=== PATIENT | female | born 1965 | race Caucasian/White ===

== ENCOUNTER 2021-07-28 19:51 | Inpatient (IN) | payer BC ==
[~2021-07-28] VITALS: Ht 165.1 cm; Wt 73.5 kg
[2021-07-28] MEDS ORDERED: IV NS 0.9% 1,000 ML BAG IV ONE ×2 (20:00→22:30)
[2021-07-28] MEDS ORDERED: ONDANSETRON HCL/PF 4 MG/2 ML VIAL IVP ONE (20:00)
--- NOTE | 2021-07-28 21:40 | NUR ---
BLOOD DRAWN FOR SEAN NAVAS PER . BLOOD SENT TO LAB
[2021-07-28 21:59] LABS: BASOPHILS # (AUTO) 0.1 K/uL (0.0-0.2); BASOPHILS % (AUTO) 0.3 % (0.0-2.0); HEMATOCRIT 28 % (33-45); HEMOGLOBIN 8.7 g/dL (11.5-14.8); LYMPHOCYTES # (AUTO) 1.7 K/uL (0.8-4.8); MEAN CORPUSCULAR HGB CONC 31 g/dl (31.0-36.0); MEAN CORPUSCULAR VOLUME 80 fL (82-100); MONOCYTES # (AUTO) 1.6 K/uL (0.1-1.30); MONOCYTES % (AUTO) 7.2 % (2.0-12.0); NEUTROPHILS # (AUTO) 18.5 K/uL (1.8-8.9); NEUTROPHILS % (AUTO) 84.5 % (43.0-81.0); PLATELET COUNT (AUTO) 462 K/uL (150-450); RED BLOOD CELL COUNT(AUTO) 3.51 MIL/uL (4.0-5.2); WHITE BLOOD COUNT (AUTO) 21.9 K/uL (4.3-11.0)
--- NOTE | 2021-07-28 22:10 | NUR ---
MAIRA DONE AND SENT TO LAB
[2021-07-28] MEDS ORDERED: ONDANSETRON HCL/PF 4 MG/2 ML VIAL ONE (22:19)
[2021-07-28 22:29] LABS: CALCIUM, SERUM 8.9 mg/dL (8.5-10.1); CREATININE 1.4 mg/dL (0.6-1.3); POTASSIUM 4.2 mmol/L (3.5-5.1)
[2021-07-28] MEDS ORDERED: MAG HYDROX/AL HYDROX/SIMETH 30 ML UDC PO PRN (22:30)
[2021-07-28] MEDS ORDERED: VANCOMYCIN 1 GM in IV D5W 250 ML IV ONE (22:30)
[2021-07-28] MEDS ORDERED: CEFEPIME 1 GM in IV D5W 50 ML IV ONE (22:30)
[2021-07-28 22:35] LABS: BILIRUBIN,DIRECT 0.1 mg/dL (0.0-0.2); BILIRUBIN,TOTAL 0.2 mg/dL (0.2-1.0); TOTAL PROTEIN, SERUM 6.6 g/dL (6.4-8.2)
[2021-07-28 22:43] LABS: ALBUMIN 1.4 g/dL (3.4-5.0)
[2021-07-28] MEDS ORDERED: IOHEXOL-350 100 ML VIAL IV ONE (22:46)
[2021-07-28] MEDS ORDERED: IV NS 0.9% 250 ML IV ONE (22:46)
--- NOTE | 2021-07-28 22:53 | NUR ---
PATIENT TAKEN TO CT
[2021-07-29] MEDS ORDERED: CEFEPIME 1 GM VIAL ONE (00:29)
[2021-07-29] MEDS ORDERED: VANCOMYCIN 1 GM VIAL ONE (00:30)
--- NOTE | 2021-07-29 00:46 | NUR ---
REPORT GIVEN TO SHAKEEL FRANCE
--- NOTE | 2021-07-29 01:00 | NUR ---
CLASS A LINEMAN OPENING NOTES PT ARRIVED TO UNIT VIA GURNEY PT ABLE TO WALK TO BED WITHOUT ASSISTANCE GAIT STEADY. A/O X4 NO PAIN OR DISCOMFORT NOTED AT THIS TIME ON ROOM AIR TOLERATING WELL. ORIENTED TO ROOM AND UNIT PT NOTED WITH RIGHT CHEST WALL PORT A CATH PT ON CHEMO THERAPY SHE IS A PT AT [facility] FOR INTRA ABDOMINAL SAR[facility] PT HAS A HISTORY OF MULTIPLE PARACENTESIS LAST PARACENTESIS WAS YESTERDAY 07/28/21 5L OUTPUT. PT HAS NO N/V AT THIS TIME. PT HAS IV ACCESS ON THE RIGHT HAND 20G RUNNING NS @75 ML/HR. ALBUMIN REPLACED 25G IV. PT HAS ABDOMINAL DISTENTION ABDOMEN IS NOT TENDER BANDAGE ON THE RIGHT SIDE FROM PARACENTESIS. SKIN IS WARM AND DRY NO DISCOLORATION NOTED. WILL CONTINUE OT MONITOR. Addendum: 07/29/21 at 0244 by EDILMA SOTO RN PRXochtil MORALES GIVEN PER PTS REQUEST TOLERATED WELL.
--- NOTE | 2021-07-29 01:00 | NUR ---
PATIENT TRANSFERRED UNDER ACLS
[2021-07-29] MEDS ORDERED: ALBUMIN 25% 100 ML IV ONE (01:09)
[2021-07-29] MEDS: ZOLPIDEM TARTRATE 5 MG TABLET PO PRN ×2 (01:31→21:26)
[2021-07-29 01:55] VITALS: BP 130/85
[2021-07-29] MEDS: ALBUMIN 25% 25 GM in PREMIX 1 EA IV SCH ×2 (02:43→11:18)
--- NOTE | 2021-07-29 03:25 | NUR ---
RN NOTES ATTEMPTED TO PUT IN MILD ACHS INSULIN ORDERS HOWEVER SYSTEM FOUND A SENSITIVITY TO INSULIN DUE TO PTS ALLERGY TO KIWIS INFORMED NICKEL PLATER DOCTOR REGARDING THIS SENSITIVITY AWAITING TO HEAR FROM DOCTOR IF ITS OKAY TO OVERRIDE THIS SENSITIVITY. AT THIS TIME PT REFUSED BS CHECK AT THIS TIME RISK EXPLAINED X 3 PT STATED " JUST CHECK IT IN THE MORNING ITS LATE NOW I WANT TO SLEEP" WILL CONTINUE TO MONITOR.
[2021-07-29 04:00] VITALS: BP 130/69
[2021-07-29] MEDS: BLOOD SUGAR DIAGNOSTIC 1 EACH STRIP IN SCH ×4 (06:40→21:19)
--- NOTE | 2021-07-29 06:56 | NUR ---
RN NOTES A/O X4 NO PAIN OR DISCOMFORT NOTED AT THIS TIME ON ROOM AIR TOLERATING WELL. ORIENTED. PT NOTED WITH RIGHT CHEST WALL PORT A CATH . PT HAS NO N/V AT THIS TIME. PT HAS IV ACCESS ON THE RIGHT HAND 20G RUNNING NS @75 ML/HR. ALBUMIN REPLACED 25G IV. PT HAS ABDOMINAL DISTENTION ABDOMEN IS NOT TENDER BANDAGE ON THE RIGHT SIDE FROM PARACENTESIS. SKIN IS WARM AND DRY NO DISCOLORATION NOTED. WILL ENDORSE CARE TO DAY SHIFT NURSE.
[2021-07-29 07:20] LABS: BASOPHILS # (AUTO) 0.1 K/uL (0.0-0.2); BASOPHILS % (AUTO) 0.3 % (0.0-2.0); EOSINOPHILS % (AUTO) 0.1 % (0.0-6.0); HEMATOCRIT 24 % (33-45); HEMOGLOBIN 7.6 g/dL (11.5-14.8); LYMPHOCYTES # (AUTO) 1.8 K/uL (0.8-4.8); LYMPHOCYTES % (AUTO) 9.5 % (20.0-44.0); MEAN CORPUSCULAR HGB CONC 32 g/dl (31.0-36.0); MEAN CORPUSCULAR VOLUME 80 fL (82-100); MONOCYTES # (AUTO) 1.6 K/uL (0.1-1.30); MONOCYTES % (AUTO) 8.2 % (2.0-12.0); NEUTROPHILS # (AUTO) 15.6 K/uL (1.8-8.9); NEUTROPHILS % (AUTO) 81.9 % (43.0-81.0); PLATELET COUNT (AUTO) 382 K/uL (150-450); RED BLOOD CELL COUNT(AUTO) 2.98 MIL/uL (4.0-5.2)
[2021-07-29 07:35] LABS: CALCIUM, SERUM 8.3 mg/dL (8.5-10.1); CREATININE 1.3 mg/dL (0.6-1.3); MAGNESIUM 2.1 mg/dL (1.8-2.4); PHOSPHORUS 4.5 mg/dL (2.5-4.9); POTASSIUM 3.8 mmol/L (3.5-5.1)
[2021-07-29 08:00] VITALS: BP 136/75
--- NOTE | 2021-07-29 08:33 | NUR ---
MS RN OPENING NOTES: RECEIVED PATIENT IN BED, AWAKE, A/O X4. PATIENT ON ROOM AIR; BREATHING EVEN AND UNLABORED, NO SOB NOTED. NO COMPLAINS OF PAIN. R HAND IV ACCESS G # 20 PRESENT AND INTACT; SL. SAFETY PRECAUTIONS IN PLACE; BED IN LOW POSITION AND LOCKED, RAILS UP X2, CALL LIGHT WITHIN REACH. WILL CONTINUE TO MONITOR PATIENT.
--- NOTE | 2021-07-29 09:35 | NUR ---
MILLED LUMBER GRADER NOTES DR HOFFMAN FROM RADIOLOGY CALLED WITH RESULTED CTA. PATIENT HAS BILATERAL PE. DR AYALA NOTIFIED AND MADE AWARE. ORDERS FOR STAT OCCULT BLOOD STOOL AND KEEPING PATIENT COMFORTABLE WITH O2 RECEIVED.
--- NOTE | 2021-07-29 10:33 | NUR ---
EHR TRAINER NOTES TRIED COLLECTING STOOL FOR OCCULT BLOOD STOOL TEST. COULD NOT COLLECT ANYTHING. PATIENT DID NOT EAT MUCH ANYTHING YESTERDAY AND TODAY AND NO STOOL PRESENT THAT COULD BE COLLECTED. WILL TRY AGAIN LATER.
--- NOTE | 2021-07-29 10:50 | NUR ---
FULL SERVICE SUPERVISOR NOTES PATIENT IS REFUSING NS @ 75 MLS/HR FOR NOW. SHE IS WORRIED ABOUT HER ASCITES AND DEVELOPING EDEMA.
[2021-07-29] MEDS ORDERED: ENOXAPARIN SODIUM 80 MG/0.8 ML DISP.SYRIN SQ ONE (12:00)
[2021-07-29] MEDS ORDERED: ENOXAPARIN SODIUM 80 MG/0.8 ML DISP.SYRIN SQ SCH (14:00)
--- NOTE | 2021-07-29 14:18 | NUR ---
OFFICE BOOKKEEPER NOTES REQUESTED MEDICAL RECORDS FROM [facility].
[2021-07-29 16:00] VITALS: BP 131/74
[2021-07-29] MEDS: ENSURE ENLIVE CHOC 237 ML CAN PO SCH (17:42)
--- NOTE | 2021-07-29 18:37 | NUR ---
MS RN CLOSING NOTES: PATIENT REMAINS IN BED, AWAKE, A/O X4. PATIENT ON ROOM AIR; BREATHING EVEN AND UNLABORED, NO SOB NOTED DURING THE DAY. NO COMPLAINS OF PAIN DURING SHIFT. R HAND IV ACCESS G # 20 PRESENT AND INTACT WITH NS RUNNING AT 75 MLS/HR. ALL NEEDS ATTENDED DURING THE DAY. SAFETY PRECAUTIONS IN PLACE; BED IN LOW POSITION AND LOCKED, RAILS UP X2, CALL LIGHT WITHIN REACH. WILL ENDORSE TO TRAFFIC MANAGER NURSE.
--- NOTE | 2021-07-29 19:15 | NUR ---
CYBER WORKFORCE DEVELOPER AND MANAGER NOTES ST-105 ON TELE MONITOR.ON BED A/O X4,BREATHING NON LABORED,O2 2L/NC IN USED ON AND OFF TO KEEP O2 SAT ABOVE 90%.KNOWN HX OF OVARIAN CA,ON CHEMOTHERAPY TWO WEEKS AGO,ABDOMEN SLIGHTLY DISTENDED BUT SOFT,S/P PARACENTESIS ON 07/27/21,5L OUT.IVF NS AT 75ML/HR RATE IN PROGRESS ON RIGHT HAND SALINE LOCK VIA IV PUMP.ASSIST WITH ADL'S FEELING WEAK.FALL PRECAUTION OBSERVED,BED ON LOWEST POSITION AND LOCKED.CALL LIGHT IN REACH,NEEDS ANTICIPATED.
[2021-07-29] MEDS ORDERED: RIVA10TA PO (19:46)
[2021-07-29] MEDS ORDERED: DIGO125T PO (19:46)
[2021-07-29] MEDS ORDERED: LOSA25TA27 PO (19:46)
[2021-07-29] MEDS ORDERED: FURO-145 PO (19:46)
[2021-07-29] MEDS ORDERED: METO50TA16 PO (19:46)
[2021-07-29 20:00] VITALS: BP 127/72
--- NOTE | 2021-07-29 21:04 | NUR ---
HOISTING ENGINE OPERATOR NOTES REPORTED BY SURGICAL DRESSING MAKER MARIA,PATIENT HAS EPISODE OF VTACH,RATE OF 220,CHECK ON PATIENT,SHE'S AWAKE,TRING TO GET A SLEEP.CHARGE NURSE MADE AWARE
--- NOTE | 2021-07-29 21:15 | NUR ---
HOMICIDE SQUAD CAPTAIN NOTES PATIENT DOOZING OFF AND ASKING FOR HER SLEEPING PILL.
[2021-07-29] MEDS: ACETAMINOPHEN 325 MG TABLET PO PRN (21:18)
--- NOTE | 2021-07-29 21:18 | NUR ---
FERRY CAPTAIN NOTES C/O MILD ABDOMINAL PAIN 2-3/1- ON PAIN SCALE,OFFERED TYLENOL BUT REFUSED.
--- NOTE | 2021-07-29 21:26 | NUR ---
PILLOW FILLER NOTES AMBIEN 5MG PO GIVEN PER PATIENT REQUEST,ST 106 ON TELE MONITOR THIS TIME.
--- NOTE | 2021-07-29 21:30 | NUR ---
AGRICULTURE MECHANIC NOTES [id number] BLOOD SUGAR CHECK 121,NO INSULIN COVERAGE.
[2021-07-29] MEDS: IV NS 0.9% 1,000 ML IV PRN (22:17)
[2021-07-29 23:49] LABS: OCCULT BLOOD STOOL NEGATIVE (NEGATIVE)
[2021-07-30] VITALS: BP 144/66
[2021-07-30] MEDS ORDERED: ENOXAPARIN SODIUM 80 MG/0.8 ML DISP.SYRIN SQ SCH
[2021-07-30 02:12] VITALS: BP 144/66
[2021-07-30 05:00] VITALS: BP 140/84
[2021-07-30] MEDS: ONDANSETRON HCL/PF 4 MG/2 ML VIAL IVP PRN (05:09)
--- NOTE | 2021-07-30 05:09 | NUR ---
JAIL KEEPER NOTES AWAKE,VOMITED COFFEE GROUND EMESIS,ZOFRAN 4MG IV GIVEN ORDERED.
[2021-07-30] MEDS: BLOOD SUGAR DIAGNOSTIC 1 EACH STRIP IN SCH ×4 (05:23→22:15)
[2021-07-30] MEDS: PANTOPRAZOLE 40 MG VIAL IV SCH ×2 (05:30→21:22)
--- NOTE | 2021-07-30 05:30 | NUR ---
PHOTOENGRAVING PROOFER APPRENTICE NOTES HOSPITALIST MADE AWARE OF VOMITUS COLOR,WITH NEW ORDER NOTED AND CARRIED OUT.,PROTONIX 40MG IV GIVEN ORDERED.
--- NOTE | 2021-07-30 06:28 | NUR ---
CUSTOMER SERVICE SUPERVISOR NOTES FAIRLY RESTED AT NIGHT,NAUSEA/VOMITING IMPROVED,IVF INFUSING WELL ON RIGHT HAND,PHU CATH CAN FLUSHED,BUT CANT ASPIRATE BLOOD,MORNING CARE RENDERED TOLERATED WELL.IN NO ACUTE DISTRESS,CALL LIGHT IN REACH,NEEDS ATTENDED.
[2021-07-30 07:31] LABS: BASOPHILS % (AUTO) 0.2 % (0.0-2.0); HEMATOCRIT 25 % (33-45); HEMOGLOBIN 7.8 g/dL (11.5-14.8); LYMPHOCYTES # (AUTO) 1.7 K/uL (0.8-4.8); LYMPHOCYTES % (AUTO) 7.9 % (20.0-44.0); MEAN CORPUSCULAR HGB CONC 32 g/dl (31.0-36.0); MEAN CORPUSCULAR VOLUME 80 fL (82-100); MONOCYTES # (AUTO) 1.8 K/uL (0.1-1.30); MONOCYTES % (AUTO) 8.7 % (2.0-12.0); NEUTROPHILS # (AUTO) 17.6 K/uL (1.8-8.9); NEUTROPHILS % (AUTO) 83.2 % (43.0-81.0); PLATELET COUNT (AUTO) 485 K/uL (150-450); RED BLOOD CELL COUNT(AUTO) 3.11 MIL/uL (4.0-5.2); WHITE BLOOD COUNT (AUTO) 21.2 K/uL (4.3-11.0)
[2021-07-30 07:41] LABS: CALCIUM, SERUM 8.5 mg/dL (8.5-10.1); CREATININE 1.1 mg/dL (0.6-1.3); POTASSIUM 3.7 mmol/L (3.5-5.1)
--- NOTE | 2021-07-30 07:50 | NUR ---
RN NOTES RECEIVED PATIENT IN BED, AWAKE, A/O X4. PATIENT ON ROOM AIR, BREATHING EVEN AND UNLABORED, NO SOB NOTED. NO COMPLAINS OF PAIN AT THIS THIS TIME. R HAND SL #20G PATENT AND INTACT. SAFETY PRECAUTIONS IN PLACE, BED IN LOW POSITION AND LOCKED, RAILS UP X2, CALL LIGHT AND TABLE WITHIN EASY REACH. WILL CONTINUE TO MONITOR PATIENT.
[2021-07-30 08:00] VITALS: BP 117/72
[2021-07-30 08:17] LABS: THYROID STIMULATING HORMONE 2.512 uIU/mL (0.358-3.74)
[2021-07-30] MEDS: ENSURE ENLIVE CHOC 237 ML CAN PO SCH ×2 (08:35→16:17)
[2021-07-30] MEDS: METOPROLOL TARTRATE 50 MG TABLET PO SCH ×2 (11:28→17:18)
[2021-07-30] MEDS: RIVAROXABAN 10 MG TABLET PO SCH ×3 (11:29→16:52)
[2021-07-30 12:56] LABS: BAND % (MANUAL) 4 % (0.0-5.0); LYMPHOCYTES % (MANUAL) 9 % (16-48); MONOCYTES % (MANUAL) 10 % (0-11.0); NEUTROPHILS % (MANUAL) 77 (42-76)
[2021-07-30] MEDS ORDERED: ATOR10TA PO (16:47)
[2021-07-30] MEDS ORDERED: PRED20TA PO (16:47)
[2021-07-30] MEDS ORDERED: FAMO20TA8 PO (16:47)
--- NOTE | 2021-07-30 16:54 | NUR ---
RN NOTES PATIENT SEEN BY LITZY, RL RECON NURSE, AND RECONCILED MEDICATIONS. SPOKE W/ CHARGE NURSE AND INFORMED THAT PATIENT WAS SEEN BY DR. PALACIOS, WILL GIVE LOVENOX TONIGHT AND WILL HAVE PARACENTESIS TOMORROW AND START HEPARIN DRIP AFTER PROCEDURE.
--- NOTE | 2021-07-30 18:50 | NUR ---
RN NOTES SPOKE W/ DR. PALACIOS AND WAS INFORMED THAT PARACENTESIS WILL BE RESCHEDULED ON 08/01 INSTEAD AND WILL START HEPARIN INFUSION FOR PATIENT TONIGHT AT 2300. PATIENT MADE AWARE AND PLAN OF CARE.
--- NOTE | 2021-07-30 19:00 | NUR ---
RN NOTES PATIENT IN BED, AWAKE A/OX4 ON ROOM AIR, SPO2 96%. BREATHING EVEN AND UNLABORED, NO SOB NOTED. RT. SL RIGHT HAND#20G PATENT AND INTACT, NS @75ML/HR INFUSING WELL. CONTINUE TELE. BLOOD GLUCOSE @1730 WAS 113MG/DL, NO INSULIN NEEDED. PATIENT AMBULATORY, ASSISTED TO BR NEEDED. SAFETY MEASURES PROVIDED. BED ON ITS LOWEST POSITION, BED LOCKED, SIDE RAILS UP, CALL LIGHT AND TABLE PLACED WITHIN EASY REACH. WILL CONTINUE TO MONITOR.
[2021-07-30 20:27] VITALS: BP 143/78
[2021-07-30] MEDS: ZOLPIDEM TARTRATE 5 MG TABLET PO PRN (21:22)
--- NOTE | 2021-07-30 21:47 | NUR ---
INSTRUCTOR PRIVATE NOTES RECEIVED PATIENT IN BED A/OX4. FAMILY MEMBER AT BED SIDE. NO S/S OF APPARENT DISTRESS. DENIES PAIN. TELE MONITOR READING SINUS TACH 117. NO FLUIDS RUNNING AT THIS TIME -- PER PATIENT SHE WANT'S IT T BE OFF SINCE SHE FEELS BLOATED, PATIENT NOTED TO HAVE ASCITES. NEEDS ATTENDED. SAFETY IN PLACE. WILL CONTINUE TO MONITOR PATIENT.
[2021-07-30] MEDS: HEPARIN INFUSION/D5W 500 ML IV PRN (23:08)
--- NOTE | 2021-07-30 23:08 | NUR ---
FLOATLIGHT LOADING SUPERVISOR NOTES HEPARIN DRIP STARTED AT THIS TIME. RE-CHECKED WEIGHT 75KG. NO BOLUS PER MD. DOSE RATE 1,350. CALCULATED INFUSION RATE 27. APTT AND INR ORDERED FOR 0500 IN THE AM 6 HOURS AFTER INITIAL HEPARIN DRIP. WILL CONT. TO MONITOR PATIENT.
[2021-07-31 00:14] VITALS: BP 131/89
[2021-07-31] MEDS: METOPROLOL TARTRATE 50 MG TABLET PO SCH ×5 (00:23→23:50)
[2021-07-31 04:41] VITALS: BP 140/83
--- NOTE | 2021-07-31 06:43 | NUR ---
WOOD MACHINE CARVER NOTE PATIENT IN BED, A/OX4. AMBULATORY. NO S/S OF APPARENT DISTRESS. PAIN TOLERABLE. TELE MONITOR READING ST 109. HEPARIN DRIP RUNNING AT THIS TIME @27 ML/HR. ALL NEEDS ATTENDED. ALL SCHEDULES MEDICATION ADMINISTERED. WILL ENDORSE TO MORNING SHIFT RN.
[2021-07-31 06:58] LABS: BASOPHILS # (AUTO) 0.1 K/uL (0.0-0.2); BASOPHILS % (AUTO) 0.3 % (0.0-2.0); HEMATOCRIT 26 % (33-45); HEMOGLOBIN 8.6 g/dL (11.5-14.8); LYMPHOCYTES # (AUTO) 2.5 K/uL (0.8-4.8); LYMPHOCYTES % (AUTO) 8.4 % (20.0-44.0); MEAN CORPUSCULAR HGB CONC 33 g/dl (31.0-36.0); MEAN CORPUSCULAR VOLUME 80 fL (82-100); MONOCYTES # (AUTO) 2.3 K/uL (0.1-1.30); MONOCYTES % (AUTO) 7.8 % (2.0-12.0); NEUTROPHILS # (AUTO) 24.7 K/uL (1.8-8.9); NEUTROPHILS % (AUTO) 83.5 % (43.0-81.0); PLATELET COUNT (AUTO) 633 K/uL (150-450); RED BLOOD CELL COUNT(AUTO) 3.29 MIL/uL (4.0-5.2); WHITE BLOOD COUNT (AUTO) 29.6 K/uL (4.3-11.0)
--- NOTE | 2021-07-31 07:20 | NUR ---
RN NOTES BS TAKEN BY MER METAL DRILL PRESS OPERATOR RN, AT 133MG/DL.
[2021-07-31] MEDS: BLOOD SUGAR DIAGNOSTIC 1 EACH STRIP IN SCH ×5 (07:30→23:38)
--- NOTE | 2021-07-31 07:51 | NUR ---
WARP SPINNER NOTE RECEIVED PATIENT IN BED, A/OX4. NO S/S OF ACUTE DISTRESS. NO C/O PAIN AT THIS TIME. TELE MONITOR READING ST 109. HEPARIN DRIP RUNNING AT THIS TIME @27 ML/HR. WILL CONTINUE TO MONITOR. SAFETY MEASURES IN PLACE. CALL LIGHT PLACED WITHIN EASY REACH.
[2021-07-31 08:05] LABS: ALBUMIN 1.8 g/dL (3.4-5.0); BILIRUBIN,TOTAL 0.2 mg/dL (0.2-1.0); CALCIUM, SERUM 9.3 mg/dL (8.5-10.1); PHOSPHORUS 6.3 mg/dL (2.5-4.9); POTASSIUM 4.6 mmol/L (3.5-5.1); TOTAL PROTEIN, SERUM 6.5 g/dL (6.4-8.2)
[2021-07-31] MEDS: ENSURE ENLIVE CHOC 237 ML CAN PO SCH ×2 (08:23→17:07)
[2021-07-31 08:35] VITALS: BP 135/85
--- NOTE | 2021-07-31 08:35 | NUR ---
RN NOTES RECEIVED PTT RESULT, CURRENTLY ON HEPARIN DRIP. PER HEPARIN-DOSING PROTOCOL, KEEP CURRENT RATE OF 1350UNITS/HR AND NEXT PTT ON 08/01/21 IN AM. NO SIGNS OF BLEEDING NOTED.
[2021-07-31] MEDS: PANTOPRAZOLE 40 MG VIAL IV SCH ×2 (09:12→21:02)
[2021-07-31 10:06] LABS: IMMUNOGLOBULIN A, SERUM 69 mg/dL (87-352); IMMUNOGLOBULIN G, SERUM 314 mg/dL (586-1602); IMMUNOGLOBULIN M, SERUM 23 mg/dL (26-217)
[2021-07-31 10:09] LABS: BAND % (MANUAL) 4 % (0.0-5.0); LYMPHOCYTES % (MANUAL) 10 % (16-48); METAMYELOCYTES % 2 % (0-0); MONOCYTES % (MANUAL) 4 % (0-11.0); MYELOCYTES % 1 % (0-0); NEUTROPHILS % (MANUAL) 79 (42-76)
[2021-07-31 12:00] VITALS: BP 142/87
--- NOTE | 2021-07-31 12:56 | NUR ---
RN NOTES DR. AYALA AT BEDSIDE TO SEE THE PATIENT; MADE AWARE OF PLAN OF CARE.
[2021-07-31 16:00] VITALS: BP 126/86
[2021-07-31] MEDS: HEPARIN INFUSION/D5W 500 ML IV PRN (16:33)
--- NOTE | 2021-07-31 18:26 | NUR ---
RN NOTES URINE SPECIMEN COLLECTED. PLACED IN REFRIGERATOR.
--- NOTE | 2021-07-31 18:35 | NUR ---
RN NOTES PATIENT IN BED, AWAKE A/OX4. ON O2 AT 2LPM VIA N/C, SPO2 98%. BREATHING EVEN AND UNLABORED, NO SOB NOTED. SL RIGHT HAND #20G PATENT AND INTACT, HEPARIN DRIP 27ML/HR INFUSING WELL. APTT 46.6, CONTINUE CURRENT HEPARIN DOSE, RECHECK PTT IN AM. CONTINUE TELE. BLOOD GLUCOSE @1730 WAS 167MG/DL WITHOUT INSULIN COVERAGE. CONTINUE TELE, SINUS TACH @108. PATIENT AMBULATORY, ASSISTED TO BSC NEEDED. SAFETY MEASURES PROVIDED. BED ON ITS LOWEST AND LOCKED POSITION, SIDE RAILS UP, CALL LIGHT AND TABLE PLACED WITHIN EASY REACH. WILL CONTINUE TO MONITOR.
--- NOTE | 2021-07-31 19:00 | NUR ---
MS RN OPENING NOTE RECEIVED PT IN BED, RESTING. A/O X4. PT IS STABLE ON 2L OXYGEN VIA NC. NO SOB OR RESPIRATORY DISTRESS NOTED, NO C/O PAIN. RESPIRATIONS EVEN AND UNLABORED, IV ACCESS NOTED IN LEFT AC G#20, INTACT, PATENT AND FLUSHING WELL. FALL AND SAFETY MEASURES IN PLACE AND MAINTAINED AT ALL TIMES. BED ALARM ON, BED IN LOW AND LOCKED POSITION, HOB ELEVATED TO SEMI FOWLERS POSITION, CALL LIGHT AND TABLE WITHIN REACH, SIDE RAILS UP X2. WILL CONTINUE TO MONITOR.
[2021-07-31] MEDS: CEFEPIME 2 GM in IV D5W 100 ML IV SCH (20:07)
[2021-07-31 20:28] VITALS: BP 129/81
[2021-07-31] MEDS: VANCOMYCIN 1 GM in IV D5W 250 ML IV SCH (21:08)
[2021-07-31] MEDS ORDERED: DEXTROSE 50%-WATER 50 ML DISP.SYRIN IV PRN (23:00)
[2021-07-31] MEDS: INSULIN REGULAR, HUMAN 100 UNIT/ML 3 ML VIAL SQ PRN (23:47)
--- NOTE | 2021-07-31 23:47 | NUR ---
BS 200. 3 UNITS OF INSULIN GIVEN PER SLIDING SCALE.
[2021-08-01 00:06] VITALS: BP 140/94
--- NOTE | 2021-08-01 02:35 | NUR ---
APTT 62. No CHANGE PER SCALE. WILL CONTINUE TO MONITOR.
--- NOTE | 2021-08-01 03:20 | NUR ---
246 ML OBSERVED PER BLADDER SCAN. WILL CONTINUE TO MONITOR
[2021-08-01 04:06] VITALS: BP 142/94
[2021-08-01 04:45] LABS: BILIRUBIN,URINE MODERATE (NEGATIVE); COLOR,URINE BROWN (YELLOW); LEUKOCYTE ESTERASE ,URINE NEGATIVE (NEGATIVE); NITRITE, URINE POSITIVE (NEGATIVE); PH,URINE 6.5 (5.0-8.0); PROTEIN,URINE 100 mg/dl (NEGATIVE); UGLUCOSE NEGATIVE (NEGATIVE); UROBILINOGEN,URINE 0.2 EU/dL (0.2)
[2021-08-01] MEDS: CEFEPIME 2 GM in IV D5W 100 ML IV SCH (05:04)
[2021-08-01] MEDS: METOPROLOL TARTRATE 50 MG TABLET PO SCH ×3 (05:10→18:05)
[2021-08-01 05:33] LABS: BACTERIA,URINE Many /HPF (None Seen); RBC,URINE 81-100 /HPF (0-2); SQUAMOUS EPITHELIAL CELL,UR Few /HPF (None Seen)
[2021-08-01 05:34] LABS: URINE AMORPHOUS URATE Many /HPF (None Seen)
[2021-08-01] MEDS: BLOOD SUGAR DIAGNOSTIC 1 EACH STRIP IN SCH ×6 (06:30→22:10)
[2021-08-01] MEDS: INSULIN REGULAR, HUMAN 100 UNIT/ML 3 ML VIAL SQ PRN ×4 (06:33→22:11)
--- NOTE | 2021-08-01 06:47 | NUR ---
@0630 PT XX=250, 3u reg insulin given.
--- NOTE | 2021-08-01 07:35 | NUR ---
RN NOTE RECEIVED PATIENT IN BED, AWAKE, A/OX4. NO S/S OF ACUTE DISTRESS. NO C/O PAIN AT THIS TIME. ON O2@2LPM VIA N/C, SPO2 98%. NO SOB NOTED. SL RH #20G PATENT AND INTACT. HEPARIN DRIP ON HOLD AT THIS TIME FOR PARACENTESIS TODAY. WILL CONTINUE TO MONITOR. SAFETY MEASURES IN PLACE. BED ON LOWEST AND LOCKED POSITION. CALL LIGHT PLACED WITHIN EASY REACH. WILL CONTINUE TO MONITOR.
[2021-08-01 07:38] LABS: BASOPHILS # (AUTO) 0.1 K/uL (0.0-0.2); BASOPHILS % (AUTO) 0.2 % (0.0-2.0); EOSINOPHILS % (AUTO) 0.1 % (0.0-6.0); HEMATOCRIT 28 % (33-45); HEMOGLOBIN 8.6 g/dL (11.5-14.8); LYMPHOCYTES # (AUTO) 2.3 K/uL (0.8-4.8); LYMPHOCYTES % (AUTO) 7.7 % (20.0-44.0); MEAN CORPUSCULAR HGB CONC 31 g/dl (31.0-36.0); MEAN CORPUSCULAR VOLUME 79 fL (82-100); MONOCYTES # (AUTO) 2.3 K/uL (0.1-1.30); MONOCYTES % (AUTO) 7.7 % (2.0-12.0); NEUTROPHILS # (AUTO) 25.5 K/uL (1.8-8.9); NEUTROPHILS % (AUTO) 84.3 % (43.0-81.0); PLATELET COUNT (AUTO) 724 K/uL (150-450); RED BLOOD CELL COUNT(AUTO) 3.52 MIL/uL (4.0-5.2)
[2021-08-01 08:01] LABS: ALBUMIN 1.5 g/dL (3.4-5.0); BILIRUBIN,TOTAL 0.2 mg/dL (0.2-1.0); MAGNESIUM 2.1 mg/dL (1.8-2.4); PHOSPHORUS 6.3 mg/dL (2.5-4.9); POTASSIUM 4.7 mmol/L (3.5-5.1); TOTAL PROTEIN, SERUM 6.8 g/dL (6.4-8.2)
[2021-08-01] MEDS: ENSURE ENLIVE CHOC 237 ML CAN PO SCH ×2 (08:10→17:31)
[2021-08-01 08:13] LABS: CREATININE 2.3 mg/dL (0.6-1.3)
[2021-08-01 08:25] LABS: WHITE BLOOD COUNT (AUTO) 30.2 K/uL (4.3-11.0)
[2021-08-01] MEDS: PANTOPRAZOLE 40 MG VIAL IV SCH ×2 (08:42→21:05)
--- NOTE | 2021-08-01 09:00 | NUR ---
RN NOTES RECEIVED PTT RESULT OF 28.7; HEPARIN DRIP CURRENTLY ON HOLD.
[2021-08-01 09:25] VITALS: BP 131/93
--- NOTE | 2021-08-01 09:29 | NUR ---
RN NOTES SPOKE W/ SAUD FROM RADIOLOGY/ULTRASOUND AND INQUIRED ABOUT PATIENT'S THORACENTESIS PROCEDURE. PER SAUD, THEY MIGHT DO THE PROCEDURE AROUND 1300. HEPARIN DRIP CURRENTLY ON HOLD.
--- NOTE | 2021-08-01 10:40 | NUR ---
RN DEAN BELL, LUBA ONCO, CURRENTLY IN UNIT TO SEE PATIENT; AWARE OF PATIENT'S WBC LEVEL AND MADE AWARE OF PATIENT'S PARACENTESIS PROCEDURE TODAY.
[2021-08-01 11:21] LABS: BAND % (MANUAL) 3 % (0.0-5.0); LYMPHOCYTES % (MANUAL) 3 % (16-48); METAMYELOCYTES % 3 % (0-0); MONOCYTES % (MANUAL) 7 % (0-11.0); MYELOCYTES % 1 % (0-0); NEUTROPHILS % (MANUAL) 83 (42-76)
--- NOTE | 2021-08-01 12:40 | NUR ---
RN NOTES ALEXX, BROTHER, AT BEDSIDE AND MADE AWARE OF PATIENT'S PROGRESS AND CONDITION.
[2021-08-01] MEDS: MEROPENEM 500 MG in IV NS 0.9% 50 ML IV SCH (12:50)
[2021-08-01] MEDS: VANCOMYCIN 1 GM in IV D5W 250 ML IV SCH (14:02)
[2021-08-01 14:07] LABS: *SPE A/G RATIO 0.7 (0.7-1.7); *SPE ALPHA-1-GLOBULIN 0.6 g/dL (0.0-0.4); *SPE ALPHA-2-GLOBULIN 1.2 g/dL (0.4-1.0); *SPE BETA GLOBULIN 0.8 g/dL (0.7-1.3); *SPE M-SPIKE Not Observed g/dL (Not Observed)
--- NOTE | 2021-08-01 14:14 | NUR ---
RN NOTES SPOKE W/ SAUD FROM ULTRASOUND; PER SAUD, THEY WILL DO THE PROCEDURE IN ABOUT AN HOUR.
--- NOTE | 2021-08-01 15:30 | NUR ---
RN NOTES ICEBOX WORKER AND RADIOLOGIST AT BEDSIDE TO DO PARACENTESIS FOR PATIENT.
[2021-08-01 16:00] VITALS: BP 129/75
--- NOTE | 2021-08-01 16:12 | NUR ---
RN NOTES CLINICAL DATA SPECIALIST STILL AT BEDSIDE FOR PARACENTESIS.
--- NOTE | 2021-08-01 16:30 | NUR ---
RN NOTES PATIENT FINISHED PARACENTESIS PROCEDURE PER SENIOR CYTOGENETICS LABORATORY DIRECTOR; ABLE TO REMOVE 1.2L OF FLUID. WILL WAIT ABOUT 4 HOURS BEFORE START OF HEPARIN DRIP IF NO BLEEDING IS NOTED.
--- NOTE | 2021-08-01 17:58 | NUR ---
RN NOTES PARACENTESIS SPECIMEN FOR LAB TESTS COLLECTED.
--- NOTE | 2021-08-01 18:50 | NUR ---
RN NOTES PATIENT IN BED, AWAKE A/OX4. ON O2 AT 2LPM VIA N/C, SPO2 98%. BREATHING EVEN AND UNLABORED, NO SOB NOTED. SL RIGHT HAND #20G PATENT AND INTACT, HEPARIN DRIP ON HOLD, S/P PARACENTESIS @1630,WILL RESUME AFTER 4 HOURS, APTT 28.7, HEPARIN DOSED PER PROTOCOL, RECHECK PTT IN AM. CONTINUE TELE, SR @85 AT THIS TIME. BLOOD GLUCOSE @1730 WAS 130MG/DL NO INSULIN COVERAGE. ASSISTED WITH BEDPAN NEEDED, ABLE TO VOID FREELY. SAFETY MEASURES PROVIDED. BED ON ITS LOWEST AND LOCKED POSITION, SIDE RAILS UP, CALL LIGHT AND TABLE PLACED WITHIN EASY REACH. WILL CONTINUE TO MONITOR. WILL ENDORSE TO NEXT SHIFT.
[2021-08-01 20:00] VITALS: BP 120/75
[2021-08-01] MEDS ORDERED: HEPARIN SODIUM, PORCINE 5000 UNITS/1 ML VIAL IV ONE (20:30)
--- NOTE | 2021-08-01 22:12 | NUR ---
BS 124.NO INSULIN GIVEN PER SLIDING SCALE
[2021-08-02] VITALS (7 sets, daily range): BP systolic 101–121; BP diastolic 63–82
[2021-08-02] MEDS: METOPROLOL TARTRATE 50 MG TABLET PO SCH ×5 (00:35→23:26)
[2021-08-02] MEDS: MEROPENEM 500 MG in IV NS 0.9% 50 ML IV SCH ×3 (00:35→23:27)
[2021-08-02] MEDS: IV NS 0.9% 1,000 ML IV PRN (04:17)
[2021-08-02] MEDS: BLOOD SUGAR DIAGNOSTIC 1 EACH STRIP IN SCH ×4 (06:21→22:17)
--- NOTE | 2021-08-02 06:21 | NUR ---
BS 121. NO INSULIN GIVEN PER SLIDING SCALE
[2021-08-02] MEDS: INSULIN REGULAR, HUMAN 100 UNIT/ML 3 ML VIAL SQ PRN ×3 (06:22→17:23)
--- NOTE | 2021-08-02 06:30 | NUR ---
RN CLOSING NOTE RECEIVED PT IN BED, RESTING. A/O X4. PT IS STABLE ON 2L OXYGEN VIA NC. NO SOB OR RESPIRATORY DISTRESS NOTED, NO C/O PAIN. RESPIRATIONS EVEN AND UNLABORED, IV ACCESS IN RIGHT UPPER ARM MIDLINE G # 18, INTACT, PATENT AND FLUSHING WELL. FALL AND SAFETY MEASURES IN PLACE AND MAINTAINED AT ALL TIMES. BED ALARM ON, BED IN LOW AND LOCKED POSITION, HOB ELEVATED TO SEMI FOWLERS POSITION, CALL LIGHT AND TABLE WITHIN REACH, SIDE RAILS UP X2. WILL ENDORSE TO ONCOMING NURSE FOR FLORECITA..
[2021-08-02 06:37] LABS: BASOPHILS # (AUTO) 0.1 K/uL (0.0-0.2); BASOPHILS % (AUTO) 0.3 % (0.0-2.0); HEMATOCRIT 24 % (33-45); HEMOGLOBIN 7.6 g/dL (11.5-14.8); LYMPHOCYTES # (AUTO) 2.5 K/uL (0.8-4.8); LYMPHOCYTES % (AUTO) 8.3 % (20.0-44.0); MEAN CORPUSCULAR HGB CONC 32 g/dl (31.0-36.0); MEAN CORPUSCULAR VOLUME 79 fL (82-100); MONOCYTES % (AUTO) 6.7 % (2.0-12.0); NEUTROPHILS # (AUTO) 25.2 K/uL (1.8-8.9); NEUTROPHILS % (AUTO) 84.7 % (43.0-81.0); PLATELET COUNT (AUTO) 735 K/uL (150-450); WHITE BLOOD COUNT (AUTO) 29.8 K/uL (4.3-11.0)
[2021-08-02 07:10] LABS: CREATININE 2.4 mg/dL (0.6-1.3); PHOSPHORUS 5.8 mg/dL (2.5-4.9); POTASSIUM 4.7 mmol/L (3.5-5.1)
--- NOTE | 2021-08-02 07:30 | NUR ---
MS RN OPENING NOTES RECEIVED PT IN BED, AWAKE A/O X4. PT IS STABLE ON 2L OXYGEN VIA NC. NO SOB OR RESPIRATORY DISTRESS NOTED, NO C/O PAIN. RESPIRATIONS EVEN AND UNLABORED, IV ACCESS NOTED IN LEFT AC G#22, INTACT, PATENT AND FLUSHING WELL. ASHER MIDLINE NOTED WITH AN ONGOING HEPARIN DRIP AT 1650 UNITS/HR. NO S/SX OF BLEEDING NOTED. FALL AND SAFETY MEASURES IN PLACE AND MAINTAINED AT ALL TIMES. BED ALARM ON, BED IN LOW AND LOCKED POSITION, HOB ELEVATED TO SEMI FOWLERS POSITION, CALL LIGHT AND TABLE WITHIN REACH, SIDE RAILS UP X2. WILL CONTINUE TO MONITOR ACCORDINGLY. .
[2021-08-02] MEDS: PANTOPRAZOLE 40 MG VIAL IV SCH (08:27)
[2021-08-02] MEDS: ENSURE ENLIVE CHOC 237 ML CAN PO SCH ×2 (08:34→16:56)
--- NOTE | 2021-08-02 08:35 | NUR ---
RN NOTES PTT RESULT IN. 44.6. 3000 UNITS OF HEPARIN GIVEN VIA IV BOLUS AND HEPARIN DRIP INCREASED BY 150 UNITS/HR. PATIENT IS CURRENTLY ON 1800 UNITS/HR. REPEAT PTT REQUESTED TO BE DONE AT 1530.
[2021-08-02 09:15] LABS: BAND % (MANUAL) 1 % (0.0-5.0); LYMPHOCYTES % (MANUAL) 12 % (16-48); MONOCYTES % (MANUAL) 5 % (0-11.0); NEUTROPHILS % (MANUAL) 82 (42-76)
[2021-08-02] MEDS: HEPARIN INFUSION/D5W 500 ML IV PRN (09:55)
[2021-08-02] MEDS ORDERED: HEPARIN SODIUM, PORCINE 5000 UNITS/1 ML VIAL IV ONE (10:00)
--- NOTE | 2021-08-02 12:00 | NUR ---
RN NOTES BLOOD SUGAR CHECKED, RESULT 131, INSULIN COVERAGE GIVEN ORDERED
[2021-08-02] MEDS: APIXABAN 5 MG TABLET PO SCH ×2 (12:17→17:33)
[2021-08-02] MEDS ORDERED: VANCOMYCIN 1 GM in IV D5W 250 ML IV SCH (14:00)
[2021-08-02] MEDS ORDERED: IV NS 0.9% 1,000 ML IV PRN (14:08)
--- NOTE | 2021-08-02 14:27 | NUR ---
RN NOTES ' [facility] RESULT IN=22. INFORMED PHARMACY, DOSE HELD PER PROTOCOL.
[2021-08-02] MEDS: PANTOPRAZOLE 40 MG TABLET.DR PO SCH (16:26)
--- NOTE | 2021-08-02 17:25 | NUR ---
RN NOTES BLOOD SUGAR CHECKED, RESULT 113, NO INSULIN COVERAGE.
--- NOTE | 2021-08-02 18:52 | NUR ---
FORM SETTER STEEL PAN FORMS CLOSING NOTES PT IN BED, AWAKE A/O X4. PT IS STABLE ON 2L OXYGEN VIA NC. NO SOB OR RESPIRATORY DISTRESS NOTED, NO C/O PAIN. RESPIRATIONS EVEN AND UNLABORED, IV ACCESS NOTED IN LEFT AC G#22, INTACT, PATENT AND FLUSHING WELL. ASHER MIDLINE ONGOING NS AT 50 CC/HR. NOTED WITH PHU CATH ON RCW. FALL AND SAFETY MEASURES IN PLACE AND MAINTAINED AT ALL TIMES. BED ALARM ON, BED IN LOW AND LOCKED POSITION, HOB ELEVATED TO SEMI FOWLERS POSITION, CALL LIGHT AND TABLE WITHIN REACH, SIDE RAILS UP X2. ALL NEEDS ATTENDED AND MET, DUE MEDS GIVEN ORDERED. WILL ENDORSE TO ONCOMING SHIFT FOR FLORECITA.
--- NOTE | 2021-08-02 19:45 | NUR ---
OFFENDER EMPLOYMENT SPECIALIST NOTES RECEIVED LAYING COMFORTABLY ON BED,BREATHING NON LABORED,O2 2L/NC IN USED TO KEEP O2 SAT ABOVE 90%,PALE LOOKING,ST- 105 ON TELE MONITOR,ABDOMEN SLIGHTLY DISTENDED,S/P PARACENTESIS ON 08/01.AWAITING CULTURE ANALYSIS ON FLUIDS,WILL CONTINUE TO MONITOR STATUS,CALL LIGHT IN REACH,NEEDS ANTICIPATED.
--- NOTE | 2021-08-02 21:30 | NUR ---
CONTACT LENS MANUFACTURER NOTES ACCU-CHECK BLOOD SUGAR CHECK 110.NO INSULIN COVERAGE.
[2021-08-02] MEDS: ZOLPIDEM TARTRATE 5 MG TABLET PO PRN (21:59)
--- NOTE | 2021-08-02 21:59 | NUR ---
HIGH DENSITY TALC COATER OPERATOR NOTES C/O INSOMNIA,AMBIEN 5MG PO GIVEN PER PATIENT REQUEST
[2021-08-02] MEDS: ONDANSETRON HCL/PF 4 MG/2 ML VIAL IVP PRN (22:07)
--- NOTE | 2021-08-02 22:07 | NUR ---
PROJECT DEVELOPMENT LEADER NOTES FEELING NAUSEATED,ZOFRAN 4MG IV GIVEN ORDERED.
[2021-08-02] MEDS: ACETAMINOPHEN 325 MG TABLET PO PRN (22:16)
--- NOTE | 2021-08-02 22:16 | NUR ---
MS RN NOTES C/O LOWER BACK PAIN 3/10 ON PAIN SCALE,TYLENOL 650MG PO GIVEN ORDERED,PER PATIENT REQUEST.
--- NOTE | 2021-08-02 22:45 | NUR ---
CUT AND PRINT MACHINE OPERATOR NOTES URINATED 1OOML CONCENTRATED URINE OUTPUT.REFUSED BLADDER SCAN.
[2021-08-03] VITALS: BP 103/66
[2021-08-03 04:00] VITALS: BP 117/74
[2021-08-03] MEDS: METOPROLOL TARTRATE 50 MG TABLET PO SCH ×3 (05:44→17:11)
[2021-08-03] MEDS: BLOOD SUGAR DIAGNOSTIC 1 EACH STRIP IN SCH ×4 (05:46→22:00)
--- NOTE | 2021-08-03 05:49 | NUR ---
AMPOULE INSPECTOR NOTES ACCU-CHECK BLOOD SUGAR CHECK 122,NO INSULIN COVERAGE.
[2021-08-03 06:55] LABS: BASOPHILS % (AUTO) 0.1 % (0.0-2.0); HEMATOCRIT 25 % (33-45); HEMOGLOBIN 7.8 g/dL (11.5-14.8); LYMPHOCYTES # (AUTO) 1.7 K/uL (0.8-4.8); LYMPHOCYTES % (AUTO) 4.8 % (20.0-44.0); MEAN CORPUSCULAR HGB CONC 31 g/dl (31.0-36.0); MEAN CORPUSCULAR VOLUME 81 fL (82-100); MONOCYTES # (AUTO) 2.5 K/uL (0.1-1.30); MONOCYTES % (AUTO) 6.9 % (2.0-12.0); NEUTROPHILS # (AUTO) 31.5 K/uL (1.8-8.9); NEUTROPHILS % (AUTO) 88.2 % (43.0-81.0); PLATELET COUNT (AUTO) 745 K/uL (150-450); RED BLOOD CELL COUNT(AUTO) 3.08 MIL/uL (4.0-5.2)
--- NOTE | 2021-08-03 07:01 | NUR ---
OPTICIAN MANAGER NOTES SLEPT WITH INTERVALS,NAUSEA SUBSIDED,ABDOMEN REMAINS SLIGHTLY DISTENDED,IN NO ACUTE DISTRESS.
[2021-08-03 07:05] LABS: WHITE BLOOD COUNT (AUTO) 35.7 K/uL (4.3-11.0)
--- NOTE | 2021-08-03 07:10 | NUR ---
MEN'S CUSTOM HAIR PIECE CONSULTANT NOTES REPORTED BY LAB,WBC THIS MORNING 35.7.WILL ENDORSE TO DAY NURSE FOR FOLLOW UP WITH HOSPITALIST.
[2021-08-03 07:26] LABS: CALCIUM, SERUM 8.8 mg/dL (8.5-10.1); CREATININE 2.2 mg/dL (0.6-1.3); MAGNESIUM 2.1 mg/dL (1.8-2.4); PHOSPHORUS 5.5 mg/dL (2.5-4.9); POTASSIUM 4.9 mmol/L (3.5-5.1)
--- NOTE | 2021-08-03 07:54 | NUR ---
MS RN OPENING NOTES RECEIVED PATIENT IN BED, RESTING. EASY TO AROUSE. A/O X4. ON 2L OXYGEN VIA NC. NO SOB NOTED. NO DISTRESS/DISCOMFORT NOTED. IV ACCESS ASHER - MIDLINE - RUNNING NS @ 50ML/HR. PATIENT HAS BLADDER SCAN Q8HRS BUT HAS BEEN REFUSING. SAFETY MEASURES IN PLACE. CALL LIGHT WITHIN REACH. WILL CONTINUE TO MONITOR.
[2021-08-03 08:00] VITALS: BP 120/77
[2021-08-03] MEDS ORDERED: VANCOMYCIN 0.75 GM in IV D5W 250 ML IV SCH (08:00)
[2021-08-03 08:38] LABS: LYMPHOCYTES % (MANUAL) 3 % (16-48); MONOCYTES % (MANUAL) 6 % (0-11.0); NEUTROPHILS % (MANUAL) 91 (42-76)
[2021-08-03] MEDS: ENSURE ENLIVE CHOC 237 ML CAN PO SCH (08:45)
[2021-08-03] MEDS: PANTOPRAZOLE 40 MG TABLET.DR PO SCH ×2 (08:45→17:08)
[2021-08-03] MEDS: APIXABAN 5 MG TABLET PO SCH ×2 (08:47→17:09)
--- NOTE | 2021-08-03 11:47 | NUR ---
MS RN NOTE 1200 BLOOD SUGAR 176 - PATIENT HAS POOR APPETITE, DID NOT EAT BREAKFAST AND IS REFUSING INSULIN. MD NOTIFIED.
[2021-08-03] MEDS: MEROPENEM 500 MG in IV NS 0.9% 50 ML IV SCH (11:56)
--- NOTE | 2021-08-03 14:24 | NUR ---
INFORMED RN LILIAN TO HOLD BLOOD THINNERS (ELIQUIS) 48 PRIOR TO PARACENTESIS. PER RADIOLOGIST TO BE DONE Saturday08/05/21 IN THE MORNING
--- NOTE | 2021-08-03 15:05 | NUR ---
MS RN NOTE PATIENT REFUSES BLADDER SCAN. USED BED ALLAN TWICE WITH GOOD URINE OUTPUT.
[2021-08-03 16:00] VITALS: BP 110/73
[2021-08-03] MEDS: ALBUMIN 25% 25 GM in PREMIX 1 EA IV SCH (16:10)
--- NOTE | 2021-08-03 16:54 | NUR ---
MS RN NOTE PATIENT BLOOD SUGAR 130. PATIENT STILL HAS NO APPETITE. DOES NOT WANT INSULIN. NO COVERAGE GIVEN.
[2021-08-03] MEDS ORDERED: ACETAMINOPHEN 650 MG/20.3 ML UDC PO PRN (18:00)
--- NOTE | 2021-08-03 18:36 | NUR ---
MS RN CLOSING NOTES PATIENT CURRENTLY LYING IN BED, RESTING. FAMILY AT BEDSIDE. EASY TO AROUSE. A/O X4. ON 2L OXYGEN VIA NC. NO SOB NOTED. NO DISTRESS/DISCOMFORT NOTED. IV ACCESS ASHER - MIDLINE - SALINE LOCKED. PATIENT HAS BLADDER SCAN Q8HRS BUT REFUSED THIS SHIFT. SAFETY MEASURES IN PLACE. CALL LIGHT WITHIN REACH. WILL ENDORSE TO BRAIN WAVE TECHNICIAN NURSE FOR FLORECITA.
--- NOTE | 2021-08-03 19:20 | NUR ---
MS RN OPENING NOTES: RECEIVED PATIENT IN BED, AWAKE, A/O X4. NO S/S OF DISTRESS NOTED. NO COMPLAIN OF PAIN. CALL LIGHT WITHIN REACH. BED IN LOWEST AND LOCKED POSITION. WITH FAMILY MEMBERS AT THE BEDSIDE.
[2021-08-03 20:00] VITALS: BP 107/65
[2021-08-03] MEDS ORDERED: FAMOTIDINE (20 MG) 20 MG TABLET PO PRN (20:00)
[2021-08-03] MEDS ORDERED: TYLENOL 325 MG PO PRN (20:00)
[2021-08-03] MEDS: ZOLPIDEM TARTRATE 5 MG TABLET PO PRN (21:08)
[2021-08-03] MEDS: LIDOCAINE 5% (PATCH) 1 EA PATCH TP SCH (21:09)
--- NOTE | 2021-08-03 22:00 | NUR ---
blood [id number], no insulin coverage needed.
[2021-08-04] VITALS (7 sets, daily range): BP systolic 113–133; BP diastolic 68–82
[2021-08-04] MEDS: ALBUMIN 25% 25 GM in PREMIX 1 EA IV SCH ×2 (00:38→08:00)
[2021-08-04] MEDS: MEROPENEM 500 MG in IV NS 0.9% 50 ML IV SCH ×3 (00:38→22:50)
[2021-08-04] MEDS: METOPROLOL TARTRATE 50 MG TABLET PO SCH ×5 (00:49→23:50)
[2021-08-04] MEDS: BLOOD SUGAR DIAGNOSTIC 1 EACH STRIP IN SCH ×4 (06:44→22:00)
--- NOTE | 2021-08-04 06:44 | NUR ---
blood sugar checked= 110, no insulin coverage needed.
[2021-08-04 07:01] LABS: BASOPHILS % (AUTO) 0.1 % (0.0-2.0); CREATININE 2.5 mg/dL (0.6-1.3); HEMATOCRIT 22 % (33-45); LYMPHOCYTES # (AUTO) 1.9 K/uL (0.8-4.8); LYMPHOCYTES % (AUTO) 5.7 % (20.0-44.0); MAGNESIUM 2.2 mg/dL (1.8-2.4); MEAN CORPUSCULAR HGB CONC 31 g/dl (31.0-36.0); MEAN CORPUSCULAR VOLUME 80 fL (82-100); MONOCYTES # (AUTO) 2.3 K/uL (0.1-1.30); MONOCYTES % (AUTO) 6.9 % (2.0-12.0); NEUTROPHILS # (AUTO) 29.4 K/uL (1.8-8.9); NEUTROPHILS % (AUTO) 87.3 % (43.0-81.0); PHOSPHORUS 4.9 mg/dL (2.5-4.9); PLATELET COUNT (AUTO) 704 K/uL (150-450); POTASSIUM 4.9 mmol/L (3.5-5.1); RED BLOOD CELL COUNT(AUTO) 2.74 MIL/uL (4.0-5.2)
--- NOTE | 2021-08-04 07:30 | NUR ---
MS RN OPENING NOTES RECEIVED PATIENT IN BED, AWAKE, A&O X 4. HAS COMPLAINTS OF NAUSEA, DUE ZOFRAN GIVEN ORDERED. ON O2 VIA NC AT 2LPM, SATURATING WELL AT 99%. NO S/SX OF RES[IRATORY DISTRESS NOTED. IV ACCESS ON ASHER ML PATENT NAD FLUSHES WELL. NO S/SX OF INFILTRATION NOTED. SAFETY PRECAUTIONS IN PLACE: BED ON LOWEST LOCKED POSITION, SIDE RAILS UP X 2, CALL LIGHT WITHIN EASY REACH. WILL CONTINUE TO MONITOR ACCORDINGLY.
[2021-08-04 07:48] LABS: WHITE BLOOD COUNT (AUTO) 33.7 K/uL (4.3-11.0)
[2021-08-04 07:49] LABS: HEMOGLOBIN 6.8 g/dL (11.5-14.8)
[2021-08-04] MEDS: ONDANSETRON HCL/PF 4 MG/2 ML VIAL IVP PRN ×2 (07:49→16:23)
--- NOTE | 2021-08-04 07:50 | NUR ---
RN NOTES RECEIVED A PHONE CALL FROM LAB, REPORTING CRITICAL LAB RESULT OF HGB 6.8 AND WBC OF 33.7. RESULTS FORWARDED TO DR. WANG WITH ORDERS MADE AND CARRIED OUT.
[2021-08-04] MEDS: PANTOPRAZOLE 40 MG TABLET.DR PO SCH ×2 (08:34→16:45)
[2021-08-04 08:37] LABS: BAND % (MANUAL) 3 % (0.0-5.0); LYMPHOCYTES % (MANUAL) 3 % (16-48); METAMYELOCYTES % 1 % (0-0); MONOCYTES % (MANUAL) 9 % (0-11.0); MYELOCYTES % 5 % (0-0); NEUTROPHILS % (MANUAL) 79 (42-76)
[2021-08-04] MEDS: APIXABAN 5 MG TABLET PO SCH ×2 (08:57→16:50)
[2021-08-04] MEDS: INSULIN REGULAR, HUMAN 100 UNIT/ML 3 ML VIAL SQ PRN (11:25)
[2021-08-04] MEDS ORDERED: METOCLOPRAMIDE HCL 10 MG/2 ML VIAL IV SCH (11:30)
--- NOTE | 2021-08-04 13:35 | NUR ---
RN NOTES STARTED BLOOD TRANSFUSION. BLOOD VERIFIED BY 2 RN. VITAL SIGNS TAKEN AND RECORDED.
--- NOTE | 2021-08-04 13:50 | NUR ---
RN NOTES PATIENT IS TOLERATING BLOOD TRANSFUSION WELL, NO UNTOWARD S/SX NOTED. WILL CONTINUE TO MONITOR.
--- NOTE | 2021-08-04 16:06 | NUR ---
RN NOTES BLOOD TRANSFUSION DONE. PATIENT ABLE TO TOLERATE PROCEDURE. NO UNTOWARD S/SX NOTED.
--- NOTE | 2021-08-04 16:49 | NUR ---
RN NOTES NOTED WITH HEMATURIA, NOTIFIED DR. PALACIOS.
--- NOTE | 2021-08-04 17:27 | NUR ---
RN NOTES DR. PALACIOS ACKNOWLEDGED WITH ORDERS MADE AND CARRIED OUT. HOLD ELIQUIS AND BLOOD THINNER FOR NOW. UROLOGY CONSULT. INFORMED DR. SADLER, AWAITING ACKNOWLEDGEMENT. H&H Q 6 ORDERED.
--- NOTE | 2021-08-04 17:38 | NUR ---
RN NOTES BLOOD SUGAR CHECKED, RESULT 105, NO INSULIN COVERAGE NEEDED.
[2021-08-04] MEDS ORDERED: ZOLPIDEM TARTRATE 10 MG TABLET PO PRN (18:00)
[2021-08-04] MEDS ORDERED: ATORVASTATIN 10 MG TABLET PO SCH (18:00)
[2021-08-04 18:16] LABS: HEMOGLOBIN 8.7 g/dL (11.5-14.8)
--- NOTE | 2021-08-04 18:37 | NUR ---
MS RN CLOSING NOTES PATIENT IN BED, AWAKE, A&O X 4. HAS NO COMPLAINTS OF NAUSEA AT THIS TIME. ON O2 VIA NC AT 2LPM, SATURATING WELL AT 99%. NO S/SX OF RESPIRATORY DISTRESS NOTED. IV ACCESS ON ASHER ML PATENT NAD FLUSHES WELL. NO S/SX OF INFILTRATION NOTED. WITH PHU CATH ON RCW NOTED. SAFETY PRECAUTIONS IN PLACE: BED ON LOWEST LOCKED POSITION, SIDE RAILS UP X 2, CALL LIGHT WITHIN EASY REACH. ALL NEEDS ATTENDED AND MET. DUE MEDS GIVEN ORDERED. WILL ENDORSE TO ONCOMING SHIFT FOR [facility].
[2021-08-04] MEDS: LIDOCAINE 5% (PATCH) 1 EA PATCH TP SCH (20:31)
--- NOTE | 2021-08-04 20:45 | NUR ---
PATIENT STATES THAT FOR 12MN DOSE OF METOPROLOL, TO HOLD IT IF SHE IS SLEEPING.
[2021-08-04 20:50] LABS: BASOPHILS % (AUTO) 0.1 % (0.0-2.0); HEMATOCRIT 27 % (33-45); HEMOGLOBIN 8.7 g/dL (11.5-14.8); LYMPHOCYTES # (AUTO) 1.9 K/uL (0.8-4.8); LYMPHOCYTES % (AUTO) 6.1 % (20.0-44.0); MEAN CORPUSCULAR HGB CONC 32 g/dl (31.0-36.0); MEAN CORPUSCULAR VOLUME 81 fL (82-100); MONOCYTES # (AUTO) 2.4 K/uL (0.1-1.30); MONOCYTES % (AUTO) 7.7 % (2.0-12.0); NEUTROPHILS % (AUTO) 86.1 % (43.0-81.0); PLATELET COUNT (AUTO) 690 K/uL (150-450); RED BLOOD CELL COUNT(AUTO) 3.34 MIL/uL (4.0-5.2)
[2021-08-04 21:15] LABS: WHITE BLOOD COUNT (AUTO) 31.4 K/uL (4.3-11.0)
--- NOTE | 2021-08-04 21:20 | NUR ---
INFORMED DR PATRIC WILSON RE: WBC= 31.4 AND FIBRINOGEN- 900.
[2021-08-04 21:46] LABS: BAND % (MANUAL) 3 % (0.0-5.0); LYMPHOCYTES % (MANUAL) 11 % (16-48); MONOCYTES % (MANUAL) 8 % (0-11.0); NEUTROPHILS % (MANUAL) 78 (42-76)
--- NOTE | 2021-08-04 22:21 | NUR ---
BLOOD SUGAR CHECKED= 108, NO INSULIN COVERAGE NEEDED.
[2021-08-04] MEDS ORDERED: MEROPENEM 500 MG VIAL IV ONE (22:24)
--- NOTE | 2021-08-04 22:58 | NUR ---
RECEIVED A CALL FROM PATIENT'S BROTHER ALEXX RE: HE WANTS TO TALK TO TIRE VULCANIZER MARKIE TOMORROW MORNING. INFORMED MARKIE AND GAVER THE BROTHER'S PHONE NUMBER.
[2021-08-04] MEDS ORDERED: ZOLPIDEM TARTRATE 10 MG TABLET PO ONE (23:30)
[2021-08-05 01:25] LABS: HEMOGLOBIN 8.6 g/dL (11.5-14.8)
[2021-08-05] MEDS ORDERED: ALBUMIN 25% 100 ML IV ONE (02:43)
[2021-08-05] MEDS: ALBUMIN 25% 25 GM in PREMIX 1 EA IV SCH ×3 (03:10→15:48)
[2021-08-05] MEDS: METOPROLOL TARTRATE 50 MG TABLET PO SCH ×2 (06:33→12:32)
[2021-08-05] MEDS: BLOOD SUGAR DIAGNOSTIC 1 EACH STRIP IN SCH ×2 (06:40→12:29)
--- NOTE | 2021-08-05 06:41 | NUR ---
blood sugar checked= 114, no insulin coverage needed.
[2021-08-05 06:51] LABS: HEMOGLOBIN 8.1 g/dL (11.5-14.8)
[2021-08-05 06:53] LABS: BASOPHILS # (AUTO) 0.4 K/uL (0.0-0.2); BASOPHILS % (AUTO) 1.4 % (0.0-2.0); HEMATOCRIT 26 % (33-45); HEMOGLOBIN 8.2 g/dL (11.5-14.8); LYMPHOCYTES # (AUTO) 1.3 K/uL (0.8-4.8); LYMPHOCYTES % (AUTO) 4.7 % (20.0-44.0); MEAN CORPUSCULAR HGB CONC 32 g/dl (31.0-36.0); MEAN CORPUSCULAR VOLUME 83 fL (82-100); MONOCYTES % (AUTO) 7.2 % (2.0-12.0); NEUTROPHILS # (AUTO) 23.9 K/uL (1.8-8.9); NEUTROPHILS % (AUTO) 86.7 % (43.0-81.0); PLATELET COUNT (AUTO) 613 K/uL (150-450); RED BLOOD CELL COUNT(AUTO) 3.09 MIL/uL (4.0-5.2); WHITE BLOOD COUNT (AUTO) 27.6 K/uL (4.3-11.0)
[2021-08-05 07:30] LABS: COLOR,URINE RED (YELLOW); LEUKOCYTE ESTERASE ,URINE TRACE (NEGATIVE); PH,URINE 6.5 (5.0-8.0); PROTEIN,URINE >=300 mg/dl (NEGATIVE); UGLUCOSE NEGATIVE (NEGATIVE)
[2021-08-05 07:39] LABS: BILIRUBIN,URINE NEGATIVE (NEGATIVE)
[2021-08-05 07:40] LABS: NITRITE, URINE NEGATIVE (NEGATIVE); UROBILINOGEN,URINE 0.2 EU/dL (0.2)
[2021-08-05 07:41] LABS: CALCIUM, SERUM 9.7 mg/dL (8.5-10.1); CREATININE 2.8 mg/dL (0.6-1.3); MAGNESIUM 2.5 mg/dL (1.8-2.4); PHOSPHORUS 5.4 mg/dL (2.5-4.9); POTASSIUM 5.1 mmol/L (3.5-5.1)
[2021-08-05 07:43] LABS: BACTERIA,URINE Many /HPF (None Seen); RBC,URINE TOO NUMEROUS TO COUN /HPF (0-2); SQUAMOUS EPITHELIAL CELL,UR Few /HPF (None Seen)
--- NOTE | 2021-08-05 07:46 | NUR ---
CALLED RN REGARDING PARACENTESIS, WILL BE DONE ON SATURDAY, DUE TO ELIQUIS, TO BE ON HOLD FOR 48 HOURS, LAST TIME GIVEN 22 HOURS AGO
--- NOTE | 2021-08-05 08:05 | NUR ---
MS/RN OPENING NOTES RECEIVED PATIENT IN BED, AWAKE, A&O X 4. ON O2 VIA NC AT 2LPM, NO S/SX OF RESPIRATORY DISTRESS NOTED. IV ACCESS ON ASHER MIDLINE PATENT AND INTACT. NO S/SX OF INFILTRATION NOTED. WITH PHU CATH ON RCW NOTED. SAFETY PRECAUTIONS IN PLACE: BED ON LOWEST LOCKED POSITION, SIDE RAILS UP X 2, CALL LIGHT WITHIN EASY REACH. WILL CONTINUE TO MONITOR.
[2021-08-05] MEDS: PANTOPRAZOLE 40 MG TABLET.DR PO SCH (09:35)
[2021-08-05] MEDS: MEROPENEM 500 MG in IV NS 0.9% 50 ML IV SCH (11:16)
[2021-08-05 11:29] LABS: BAND % (MANUAL) 3 % (0.0-5.0); LYMPHOCYTES % (MANUAL) 5 % (16-48); METAMYELOCYTES % 1 % (0-0); MONOCYTES % (MANUAL) 7 % (0-11.0); MYELOCYTES % 1 % (0-0); NEUTROPHILS % (MANUAL) 83 (42-76)
[2021-08-05 12:32] VITALS: BP 115/74
--- NOTE | 2021-08-05 16:20 | NUR ---
MS/SENIOR MAINTENANCE MACHINIST NOTES PATIENT IS ALERT AND ORIENTED X4, ABLE TO MAKE NEEDS KNOWN. WEAK. ON 2 LPM OF OXYGEN VIA NASAL CANNULA. PATIENT IS MEDICALLY CLEARED FOR TRANSFER AT [facility]. RN CALLED AND ENDORSED PATIENT OVER THE PHONE TO SHAKEEL HILARIO AT [facility]. PATIENT WAS PICKED UP BY EMT FOR TRANSFER.
[2021-08-09] MEDS ORDERED: APIXABAN 5 MG TABLET PO SCH (09:00)
== END 2021-08-05 16:45 | disposition short-term general hospital (02) | DRG 754 ==
LOC: ER 20:01 → TELE 23:56 → MED 08-03 09:31
PROVIDERS: ADMIT Nurse Practitioner Acute Care; ATTEND Student in an Organized Health Care Education/Training Program
PROC: 0W9G3ZZ Drainage of Peritoneal Cavity, Percutaneous Approach (ICD-10-PCS; 2021-08-01)
PROC: 05H933Z Insertion of Infusion Device into Right Brachial Vein, Percutaneous Approach (ICD-10-PCS; principal; 2021-08-02)
PROC: 30233N1 Transfusion of Nonautologous Red Blood Cells into Peripheral Vein, Percutaneous Approach (ICD-10-PCS; 2021-08-04)
DX: C56.9 Malignant neoplasm of unspecified ovary (principal); I26.99 Other pulmonary embolism without acute cor pulmonale; N17.0 Acute kidney failure with tubular necrosis; E43 Unspecified severe protein-calorie malnutrition; R65.11 Systemic inflammatory response syndrome (SIRS) of non-infectious origin with acute organ dysfunction; D68.59 Other primary thrombophilia; C78.6 Secondary malignant neoplasm of retroperitoneum and peritoneum; R18.0 Malignant ascites; E87.1 Hypo-osmolality and hyponatremia; I47.1 Supraventricular tachycardia; N39.0 Urinary tract infection, site not specified; E86.0 Dehydration; Z20.822 Contact with and (suspected) exposure to COVID-19; I10 Essential (primary) hypertension; E11.9 Type 2 diabetes mellitus without complications; J30.81 Allergic rhinitis due to animal (cat) (dog) hair and dander; Z91.018 Allergy to other foods; Z90.710 Acquired absence of both cervix and uterus; Z90.722 Acquired absence of ovaries, bilateral; Z92.21 Personal history of antineoplastic chemotherapy; Z79.01 Long term (current) use of anticoagulants; D50.9 Iron deficiency anemia, unspecified; E86.1 Hypovolemia; N13.9 Obstructive and reflux uropathy, unspecified; E87.70 Fluid overload, unspecified; R62.7 Adult failure to thrive; T45.8X5A Adverse effect of other primarily systemic and hematological agents, initial encounter; Y92.9 Unspecified place or not applicable
CPT/HCPCS: 36415; 71045-TC; 76705-TC; 76770-TC; 76942-TC; 80048-TC; 80053-TC; 80061-TC; 80076-TC; 80202-TC; 81001; 82272-TC; 82570-TC; 82728-TC; 82784; 82962-TC; 83540-TC; 83605-TC; 83615-TC; 83690-TC; 83735-TC; 84100-TC; 84155; 84155-TC; 84165; 84300-TC; 84443-TC; 84484-TC; 84550-TC; 85025-TC; 85027-TC; 85385-TC; 85610-TC; 85730-TC; 86304; 86334; 86850-TC; 87040-TC; 87070-TC; 87081-TC; 87086-TC; 93307-TC; 93970-TC; 97112-TC; 97116-TC; 97530-TC; A4216; C9113; C9803; G0378; J0692; J1644; J1650; J1815; J2185; J2405; J2765; J3370; J7030; J7050; J7060; P9016; P9047; Q9967